=== PATIENT | male | born 1985 | race Caucasian/White ===

== ENCOUNTER 2019-04-03 12:45 | Emergency (ER) | payer SELFPAY ==
[~2019-04-03] VITALS: Ht 170.2 cm; Wt 69.9 kg
[~2019-04-03 12:45] MED LIST: CITA20TA9 PO; QUET100T PO
[2019-04-03 13:05] VITALS: BP 132/80
--- NOTE | 2019-04-03 13:54 | PHYS DOC ---
Past Medical History Past Medical History: Alcoholism, Depression Past Surgical History: No Surgical History Alcohol Use: Rarely Drug Use: Marijuana, Methamphetamine Adult General Chief Complaint Chief Complaint: [facility] Patient is a 33 year old male who presents to the ER with complaints of a tender knot in his right axilla that he noticed today in addition to tingling and pain in his right 3rd and 4th digits. Patient states that he is currently in a detox program and has been doing a lot of writing recently. He denies any injury to his left arm. He denies any decreased range of motion. He states that the tingling gets worse when he bends his elbow. Eyes any warmth, or drainage from abscess site. He currently rates his pain a 7 out of 10 on the pain scale. He denies any alleviating factors. All other ROS is neg unless otherwise noted in HPI. Review of Systems Review of Systems See Above Allergies Allergies Allergies Coded Allergies Type Severity Reaction Last Updated Verified No Known Drug Allergies 03/28/19 No Physical Exam Physical Exam See Above Constitutional: Well developed, well nourished, no acute distress, non-toxic appearance. [] HENT: Normocephalic, atraumatic, bilateral external ears normal, nose normal. [] Eyes: PERRLA, EOMI, conjunctiva normal, no discharge. [] Neck: Normal range of motion, no stridor. [] Cardiovascular:Heart rate regular rhythm, no murmur [] Lungs & Thorax: Bilateral breath sounds clear to auscultation; Respirations even and unlabored, no retractions, no respiratory distress[] Skin: Warm, dry, no erythema, no rash; 1.5 cm enlarged tender area noted to right axilla consistent with cutaneous abscess. [] Extremities: No tenderness, no cyanosis, no clubbing, ROM intact, no edema. [] Neurologic: Alert and oriented X 3, normal motor function, normal sensory function, no focal deficits noted. [] Psychologic: Affect normal, judgement normal, mood normal. [] Current Patient Data Vital Signs Vital Signs Date Time Temp Pulse Resp B/P (MAP) Pulse Ox O2 Delivery O2 Flow Rate FiO2 04/03/19 13:05 98.4 72 16 132/80 (97) 98 Room Air 98.4 EKG EKG [] Radiology/Procedures Radiology/Procedures [] Course & Med Decision Making Course & Med Decision Making Pertinent Labs and Imaging studies reviewed. (See chart for details) [] Dragon Disclaimer Dragon Disclaimer This electronic medical record was generated, in whole or in part, using a voice recognition dictation system. Departure Departure Impression: Primary Impression: Cutaneous abscess of axilla Additional Impression: Cubital tunnel syndrome on right Disposition: 01 HOME, SELF-CARE Condition: STABLE Referrals: NO PCP (PCP) Patient Instructions: Abscess, Care After, Cubital Tunnel Syndrome-SportsMed Additional Instructions: You may take tylenol or ibuprofen as needed for pain. You may apply warm, moist packs to the area to help decrease discomfort. Follow-up with your primary care doctor in 1-2 days. Return to the ER sooner if your symptoms worsen. Incision and Drainage Incision and Drainage : Site: right axilla Blade Size: 18 g needle Progress The site was cleansed with alcohol wipes and an 18 gauge needle was inserted into the center of the enlarged knot, A moderate amount of bloody pus drained from the site. Minimal blood loss, pt tolerated procedure well, pt reports reduced pain after procedure. Problem Qualifiers Primary Impression: Cutaneous abscess of axilla Laterality: right Qualified Codes: L02.411 - Cutaneous abscess of right axilla HAYES N[facility] [employer] [employer] Apr 03, 2019 13:53
== END 2019-04-03 14:36 | disposition home or self-care (01) ==
LOC: ER 12:45
DX: L02.411 Cutaneous abscess of right axilla (principal); G56.21 Lesion of ulnar nerve, right upper limb
CPT/HCPCS: 10060; 99283-25